=== PATIENT | female | born 1940 | race Caucasian/White ===

== ENCOUNTER 2018-05-29 11:09 | Inpatient (IN) ==
[2018-05-29 08:17] LABS: INR 1.03; PROTIME 14.3 Seconds (11.0-16.0)
[2018-05-29 08:18] LABS: PTT 29.6 Seconds (22.3-41.8)
--- NOTE | 2018-05-29 10:20 | Diag Imaging Result Doc PS360 ---
EXAM: CHEST-2 VIEWS INDICATION: INSPIRATION/EXPIRATION POST BIOPSY TECHNIQUE: 2 views COMPARISON: 12/08/2013 FINDINGS: No discrete pneumothorax is identified status post CT-guided right lung biopsy. There is mild blunting of the right costophrenic angle suggesting trace pleural fluid and/or mild atelectasis. The lungs appear grossly clear, otherwise. The cardiomediastinal silhouette and central vasculature are grossly unremarkable. IMPRESSION: Suggestion of trace pleural fluid and/or atelectasis at the right lung base but no evidence of pneumothorax by plain radiograph status post CT-guided right lung biopsy. Electronically signed by Imer Ortiz 05/29/2018 10:17 AM
[2018-05-29] MEDS ORDERED: NS 500 ML IV ONE (11:13)
[2018-05-29] MEDS ORDERED: ZOFRAN IV ONE (11:13)
[2018-05-29] MEDS ORDERED: MORPHINE IV ONE (11:13)
[2018-05-29] MEDS ORDERED: VITAMIN K IM ONE (11:15)
[2018-05-29] MEDS ORDERED: ZOFRAN ONE (11:15)
[2018-05-29] MEDS ORDERED: MORPHINE ONE (11:16)
[2018-05-29] MEDS ORDERED: CARDIZEM IV ONE ×2 (11:28→11:57)
[2018-05-29 11:43] LABS: BASO# 0.02 X1000 (0.0-0.2); BASO% 0.2 % (0.0-0.8); EOS# 0.04 X1000 (0.0-0.7); EOS% 0.4 % (0.0-10.0); HEMATOCRIT 34.1 % (37.0-47.0); HEMOGLOBIN 10.8 g/dL (12.0-16.0); IMM GRAN# 0.02 X1000 (0.0-0.04); IMM GRAN% 0.2 % (0.0-0.5); LYMPH# 3.21 X1000 (1.2-3.4); LYMPH% 32.2 % (20.5-51.1); MCHC 31.7 g/dL (33-37); MCV 94.7 FL (81-99); MONO# 0.96 X1000 (0.11-0.59); MONO% 9.6 % (1.7-9.3); MPV 11.7 FL (7.4-10.4); NEUT# 5.71 X1000 (1.4-6.5); NEUT% 57.4 % (42.2-75.2); PLT 266 X1000 (130-400); RDW 13.7 % (11.5-14.5); WBC 9.96 X1000 (4.8-10.8)
[2018-05-29 11:47] LABS: INR 1.21; PROTIME 16.2 Seconds (11.0-16.0)
[2018-05-29 11:48] LABS: PTT 22.2 Seconds (22.3-41.8)
[2018-05-29 12:04] LABS: I-STAT CREATININE 1.4 mg/dL (0.6-1.3)
[2018-05-29 12:10] LABS: ALB/GLOB RATIO 1.9; ALBUMIN 3.8 g/dL (3.5-5.0); CALCIUM 8.9 mg/dL (8.8-10.2); CREATININE 1.3 mg/dL (0.5-0.9); POTASSIUM 3.3 mmol/L (3.5-5.1); TOTAL BILIRUBIN 0.48 mg/dL (0.20-1.00); TOTAL PROTEIN 5.8 g/dL (6.3-8.3)
--- NOTE | 2018-05-29 12:11 | Diag Imaging Result Doc PS360 ---
EXAM: CT THORAX W/WO CONTRAST INDICATION: POST BIOPSY TECHNIQUE: This exam was performed using automated exposure control, adjustment of mA or kV according to patient size, and/or use of iterative reconstruction technique. COMPARISON: Prebiopsy CT of the chest without contrast dated 05/29/2018 FINDINGS: There has been development of a moderate-sized hemothorax on the right as a complication of the CT-guided right upper lobe lung biopsy done a few minutes prior to the scan. There is active contrast extravasation into the anteromedial pleural space adjacent to the recently biopsied mass. This can be seen on image 53 of series 7. Although it is underlying the internal mammary artery, extravasation is not clearly emanate from the artery. It may emanate from the mass itself, which abuts the pleura. The hemothorax is causing mild leftward mediastinal shift and right atrial tamponade. There is some groundglass opacity around the recently biopsied mass in the anterior segment of the right upper lobe indicating perilesional parenchymal hemorrhage. There is atelectasis at the right lung base related to the thorax. There is pulmonary emphysema as has been seen on previous studies that is at least moderate in severity. IMPRESSION: Moderate-sized right hemothorax due to the very recent CT-guided biopsy with active extravasation into the pleural space as detailed above. The findings were discussed with the emergency department physician, Dr. Gavin Maxwell at 05/29/2018 11:55 PM and was acknowledged. Electronically signed by Imer Ortiz 05/29/2018 12:09 PM
--- NOTE | 2018-05-29 12:21 | Diag Imaging Result Doc PS360 ---
EXAM: CT GUIDED BIOPSY LUNG INDICATION: R-LUNG MASS TECHNIQUE: COMPARISON: PET scan dated 05/16/2018 FINDINGS: Risks, benefits, and alternatives were discussed with the patient and informed consent was obtained. The patient was placed in a supine position and was prepped and draped in sterile fashion. Local anesthesia was achieved with 1% lidocaine solution. Using CT guidance, an 18-gauge coaxial biopsy needle system was inserted into the mass in the anterior segment of the right upper lobe seen on the previous PET scan using an anterior approach guiding the needle just lateral to the internal mammary artery. Two 1.3 cm core biopsies of the mass were obtained. The patient began experiencing significant hemoptysis and shortness of breath and shortness of breath. The needle was then withdrawn intact. A post biopsy chest radiograph showed no pneumothorax but there was a small pleural fluid collection at the right lung base. Patient continued to experience shortness of breath so a full postbiopsy CT of the chest with and without contrast was performed. It showed a moderate-sized right hemothorax with active contrast extravasation. The patient was transferred to the emergency department and was to be admitted by the hospitalist. IMPRESSION: Technically successful CT-guided biopsy of the right upper lobe lung mass, which was complicated by development of a hemothorax. Please see above discussion. Electronically signed by Imer Ortiz 05/29/2018 12:19 PM
[2018-05-29 12:30] LABS: ALLEN TEST NO; BLOOD TYPE ARTERIAL; METHB 0.5 % (0.0-1.5); O2HB 95.4 % (95.0-99.0); PO2(98.6) 97 mmHg (60-100); SAMPLE BLOOD; SAO2 97.8 % (95.0-100.0); THB 8.8 g/dL (11.5-17.4)
[2018-05-29 12:31] LABS: MODALITY NRB
[2018-05-29 12:33] LABS: PCO2(98.6) 59 mmHg (35-45)
--- NOTE | 2018-05-29 12:37 | PROVIDER DOCUMENTATION ---
This chart was entered by Marlee Manjarrez Scribe, acting as scribe for Gavin Potts MD. HPI-Critical Care - General Chief Complaint: For Procedure Stated Complaint: FOR PROCEDURE Time Seen by Provider: 05/29/18 11:11 Source: patient, other (radiologist) Unable to obtain history due to:: urgency Allergies/Adverse Reactions: Allergies Allergy/AdvReac Type Severity Reaction Status Date / Time hydrocodone Allergy NAUSEA/VOMI Verified 05/29/18 07:20 TING Home Medications: Home Medication List Medication Instructions Recorded Confirmed Last Taken Type Clopidogrel [Plavix] 75 mg PO HS 12/05/13 05/29/18 05/28/18 20:00 History Isosorbide Mononitrate E.r. [Imdur] 60 mg PO QAM 12/05/13 05/29/18 05/28/18 07: 00 History Metformin HCl 1,000 tab PO BID 12/05/13 05/29/18 05/28/18 17:00 History Omeprazole 40 mg PO QAM 12/05/13 05/29/18 05/28/18 17:00 History Triamterene/Hydrochlorothiazid 37.5 mg PO DAILY 12/05/13 05/29/18 05/28/18 07: 00 History [Triamterene-Hctz 37.5-25 mg Cp] Furosemide [Lasix] 40 mg PO QAM 04/20/14 05/29/18 05/28/18 07:00 History Pregabalin [Lyrica] 50 mg PO QHS 04/20/14 05/29/18 05/28/18 21:00 History ROSUVAstatin [Crestor] 20 mg PO DAILY 04/20/14 05/29/18 05/28/18 21:00 History Aspirin 81 mg PO DAILY 10/12/17 05/29/18 05/28/18 20:00 History Cilostazol [Pletal] 50 mg PO BID 10/12/17 05/29/18 05/28/18 18:00 History Atenolol 25 mg PO DAILY 05/29/18 05/29/18 05/28/18 07:00 History Lactobacillus Rhamnosus GG 1 each PO DAILY 05/29/18 05/29/18 05/28/18 07:00 History [Culturelle] Naproxen 500 mg PO DAILY 05/29/18 05/29/18 Unknown History Potassium Chloride 20 meq PO BID 05/29/18 05/29/18 05/28/18 18:00 History Rivaroxaban [Xarelto] 20 mg PO DAILY 05/29/18 05/29/18 05/27/18 History Warfarin [Coumadin] 4 - 8 mg PO DIRECTED PRN PRN 05/29/18 05/29/18 05/22/18 History - History of Present Illness-Critical Care Nature of Presenting Problem: 78 yowf presents to the ed with c/o sob and pain. pt ws having a procedure done when pt had bleed into rt lung. pt presents with a large hemathorax and in moderate distress. pt is on known blood thinners Location of Pain/Injury: reports: chest Quality of Pain: reports: fullness Severity in ED: reports: severe Onset/Duration: reports: just prior to arrival (was brought down from radiology) Timing: reports: still present, getting worse Associated Symptoms: reports: shortness of breath, other (confusion). denies: back/neck pain, cough, fever/chills Loss of Consciousness: no loss of consciousness Improves Condition (Modifying Factors): improves with: nothing Similar Symptoms Previously?: No Recently Seen Here or By Another Healthcare Provider: Yes (was in procedure in radiology) Review of Systems - Adult - REVIEW OF SYSTEMS - ADULT ROS:: unobtainable per condition Constitutional: reports: other (pt is moderate distress and confused). denies: chills, fever Eyes: reports: no symptoms reported Ears, Nose, Mouth & Throat: reports: see HPI, other (no teeth) Cardiovascular: reports: see HPI, other (pt is in afib with rvr) Respiratory: reports: no symptoms reported Gastrointestinal: denies: abdominal pain, nausea, vomiting Genitourinary: reports: no symptoms reported Musculoskeletal: denies: back pain, neck pain Integumentary: reports: no symptoms reported Neurological: denies: dizziness/vertigo, headache/migraines, slurred speech Psychiatric: reports: no symptoms reported Endocrine: reports: no symptoms reported Hematologic/Lymphatic: reports: no symptoms reported Allergic/Immunologic: reports: no symptoms reported All Other Systems: Reviewed and Negative Past History - Adult - PAST MEDICAL HISTORY-ADULT Review of Records: reports: Old Records Reviewed, Nursing Assessment Review, Medications Reviewed, Social history reviewed & non-contributory. Major Childhood Illnesses: reports: denies history Cardiovascular: reports: A-Fib, CHF, HTN, hyperlipidemia, CO Respiratory: reports: COPD Gastrointestinal: reports: GERD Obstetrical/Gynecological: reports: denies history Genitourinary: reports: cancer (bladder) Musculoskeletal: reports: denies history Neurological: reports: denies history Psychiatric: reports: denies history Endocrine/Immune: reports: Diabetes - PRIOR SURGERIES/PROCEDURES Surgical/Procedure History: reports: cardiac stent, hysterectomy, other ( cataract removal, rt leg angioplasty, rt breast, bladder, back) - PRIOR HOSPITALIZATIONS Prior Hospitalizations: reports: for other non-related - IMMUNIZATION STATUS Childhood Immunizations: UTD, See Nurse Assessment Flu Vaccine: See Nurse Assessment - FAMILY HISTORY Family History: reviewed, not pertinent - SOCIAL HISTORY Smoking: quit greater than 1 year Substance Use: denies Living Situation: family Physical Exam-General - PHYSICAL EXAM-ADULT Exam Limited by: pt is confused and moderate distress Initial Vital Signs Reviewed: Yes - CONSTITUTIONAL General Appearance: alert, obese, other (condfused) - EYES Eyes: PERRL/EOMI - HEAD, EARS, NOSE, MOUTH & THROAT HENMT: moist mucous membranes, other (no teeth) - NECK Neck: normal inspection - RESPIRATORY Respiratory: respiratory distress (mild), decreased breath sounds, dull on percussion, increased rate (32), other (hemathorax rt side) - CARDIOVASCULAR Cardiovascular: tachycardia, irregularly irregular (124), other (afib with rvr) - CHEST (BREASTS) Chest/Breast: tenderness (and small PW from biopsy, right upper para sternal border) - GASTROINTESTINAL (ABDOMEN) Abdominal Exam: normal bowel sounds, non tender, soft - GENITOURINARY Female Genitalia/Pelvic Exam: deferred Rectal Exam: deferred - LYMPHATIC Lymphatic: no adenopathy - MUSCULOSKELETAL Back Exam: other (not done pt was lying on back in room) Extremity: pedal edema - SKIN Integumentary: warm/dry, pallor - NEUROLOGIC Neurologic: other (pt is confused) - PSYCHIATRIC Psych/Mental Status: anxious Progress - PLAN OF CARE/RESULTS Progress/Plan/Lab Results: Vital Signs - 8 hr 05/29/18 11:11 05/29/18 11:27 05/29/18 11:29 Pulse Rate 150 H 151 H 135 H Respiratory Rate 32 H 30 H 32 H Blood Pressure 99/61 100/41 O2 Sat by Pulse Oximetry 98 99 98 05/29/18 11:31 05/29/18 11:32 05/29/18 11:40 Pulse Rate 135 H 140 H 149 H Respiratory Rate 26 H 30 H 29 H Blood Pressure 106/92 O2 Sat by Pulse Oximetry 97 97 97 05/29/18 11:48 05/29/18 11:50 05/29/18 11:52 Pulse Rate 127 H 97 H 108 H Respiratory Rate 30 H 30 H 30 H Blood Pressure 83/50 96/47 O2 Sat by Pulse Oximetry 82 L 84 L 80 L 05/29/18 11:56 05/29/18 12:00 05/29/18 12:01 Pulse Rate 139 H 100 H Respiratory Rate 24 24 Blood Pressure 110/54 O2 Sat by Pulse Oximetry 87 L 96 96 05/29/18 12:02 05/29/18 12:06 Pulse Rate 106 H 109 H Respiratory Rate 24 23 Blood Pressure 86/38 78/48 O2 Sat by Pulse Oximetry 96 96 Laboratory Results - last 24 hr 05/29/18 05/29/18 05/29/18 11:20 11:20 11:20 WBC 9.96 RBC 3.60 L Hgb 10.8 L Hct 34.1 L MCV 94.7 MCH 30.0 MCHC 31.7 L RDW Std Deviation 13.7 Plt Count 266 MPV 11.7 H Immature Gran % (Auto) 0.2 Neut % (Auto) 57.4 Lymph % (Auto) 32.2 [place] % (Auto) 9.6 H Eos % (Auto) 0.4 Baso % (Auto) 0.2 Immature Gran # (Auto) 0.02 Neut # (Auto) 5.71 Lymph # (Auto) 3.21 [place] # (Auto) 0.96 H Eos # (Auto) 0.04 Baso # (Auto) 0.02 PT 16.2 H INR 1.21 PTT (Actin FS) 22.2 L Sodium 136 Potassium 3.3 L Chloride 94 L Carbon Dioxide 26 Anion Gap 16 BUN 24 H Creatinine 1.3 H Estimated GFR/1.73 m2 40 BUN/Creatinine Ratio 18 Glucose 352 H Calculated Osmolality 290 Calcium 8.9 Total Bilirubin 0.48 AST 11 ALT 9 L Alkaline Phosphatase 32 Troponin T Total Protein 5.8 L Albumin 3.8 Globulin 2.0 Albumin/Globulin Ratio 1.9 Blood Type 05/29/18 05/29/18 11:20 11:20 WBC RBC Hgb Hct MCV MCH MCHC RDW Std Deviation Plt Count MPV Immature Gran % (Auto) Neut % (Auto) Lymph % (Auto) [place] % (Auto) Eos % (Auto) Baso % (Auto) Immature Gran # (Auto) Neut # (Auto) Lymph # (Auto) [place] # (Auto) Eos # (Auto) Baso # (Auto) PT INR PTT (Actin FS) Sodium Potassium Chloride Carbon Dioxide Anion Gap BUN Creatinine Estimated GFR/1.73 m2 BUN/Creatinine Ratio Glucose Calculated Osmolality Calcium Total Bilirubin AST ALT Alkaline Phosphatase Troponin T < 0.010 Total Protein Albumin Globulin Albumin/Globulin Ratio Blood Type A POSITIVE Orders Category Date Time Status Misc. NRSG Communication Order DIRECTED Care 05/29/18 12:30 Ordered Nursing- MD Consult Request ROUTINE Care 05/29/18 12:09 Active Transfuse .Give-Transfuse Care 05/29/18 12:00 Active Transfuse .Give-Transfuse Care 05/29/18 12:01 Active Physician/Provider Consults Routine Cons 05/29/18 12:09 Ordered NPO Diet 05/29/18 11:12 Active CHEST-PORTABLE [RAD] Stat Exams 05/29/18 11:13 Taken CHEST-PORTABLE [RAD] Stat Exams 05/29/18 12:05 Taken ABG [RESP] Routine Lab 05/29/18 12:06 Ordered CBC WITH ELECTRONIC DIFF [HEME] Stat Lab 05/29/18 11:20 Completed COMPREHENSIVE METABOLIC PANEL [CHEM] Stat Lab 05/29/18 11:20 Completed FRESH FROZEN PLASMA [BBK] Stat Lab 05/29/18 11:20 Results LRPC (RED CELLS) [BBK] Stat Lab 05/29/18 12:00 Uncollected PHERESIS PLATELETS [BBK] Stat Lab 05/29/18 12:06 Uncollected PRO B-NATRIURETIC PEPTIDE Stat Lab 05/29/18 11:20 Received PROTIME WITH INR [COAG] Stat Lab 05/29/18 11:20 Completed PTT [COAG] Stat Lab 05/29/18 11:20 Completed TROPONIN T Stat Lab 05/29/18 11:20 Completed TYPE & SCREEN [BBK] Stat Lab 05/29/18 11:20 Results URINALYSIS W/POSS RFLX CULT [URINALYSIS] Stat Lab 05/29/18 11:13 Uncollected 0.9% Sodium Chloride Inj [Ns] 500 ml Med 05/29/18 11:13 Discontinued IV 999 mls/hr Diltiazem [Cardizem] Med 05/29/18 11:28 Discontinued 10 mg IV NOW ONE Diltiazem [Cardizem] Med 05/29/18 11:57 Discontinued 25 mg IV NOW ONE Morphine Med 05/29/18 11:16 Discontinued 4 mg .ROUTE .STK-MED ONE Morphine Med 05/29/18 11:13 Discontinued 4 mg IV NOW ONE Ondansetron [Zofran] Med 05/29/18 11:15 Discontinued 4 mg .ROUTE .STK-MED ONE Ondansetron [Zofran] Med 05/29/18 11:13 Discontinued 4 mg IV NOW ONE Phytonadione [Vitamin K] Med 05/29/18 11:15 Discontinued 0.5 mg IM NOW ONE Oxygen Device Stat Oth 05/29/18 11:14 Completed EKG [EKG] Stat Ther 05/29/18 11:12 Ordered Transfer/Admit Order [TRANSFER] Routine Transfer 05/29/18 12:09 Ordered Result Diagrams: 05/29/18 11:20 05/29/18 11:20 - REASSESSMENT Reassessment #1 Time Reassessed: 11:28 (dr potts at bedside) Status: unchanged Reassessment Comment: 99/60 HR 151 afib with rvr Reassessment #2 Time Reassessed: 11:45 (spoke with dr potts) Status: unchanged Reassessment Comment: dr annabel khalil is at bedside with pt Reassessment #3 Time Reassessed: 12:00 (chest tube in place and pt had 1200 of blood output from chest tbe. dr potts is aware and at bedside) Status: improving Reassessment Comment: blood being ordered for 2 units, plus FFP, plus platelets Reassessment #4 Time Reassessed: 12:35 Status: improving (HR down after two doses of cardizem. Given Morphine/zofran for pain. Blood products warmed and Diane Hugger used for hypothermia) - XRAY 1 XRAY: Bilateral XRAY Study: Chest Impression: Abnormal, See EMR Report XRAY Interpretation: large right pleural effusion/hemothorax - CONSULTS/PCP/HOSPITALIST Notification #1 *Consult/PCP/Hospitalist*: dr jin sx Time Discussed: 11:26 (called x3 and returned call and spoke with dr jin about the pt and possible of chest tube) Reason/Comments: sx will come to ed and place chest tube dr jin Consult Disposition: Will see in ED #2 Consult: dr to Time Discussed: 11:00 (pt was having procedure done) Reason/Comments: called to advise pt was coming to ed with possible hemathorax #3 Consult: hospitalist dr hoyt Time Discussed: 12:06 Consult Disposition: Admit Departure - Departure Date of Disposition Decision: 05/29/18 Time of Disposition Decision: 12:34 DIAGNOSIS: Atrial fibrillation with rapid ventricular response, Post-procedural respiratory complication, Hemothorax on right, Type 2 diabetes mellitus with hyperglycemia, with long-term current use of insulin Hypothermia Qualifiers: Encounter type: initial encounter Qualified Code(s): T68.XXXA - Hypothermia, initial encounter Disposition: ADMITTED INPATIENT 09 Certified Medical Emergency: Emergent Condition: Fair Referrals and Follow-Ups: None,PCP [Primary Care Provider] - - Critical Care Note This patient required my direct & personal management of CC.: Yes Total Time (mins): 45 Critical Care Statement: This patient required my direct personal management to treat or rule out processes, the absence of which, could potentiallly result in sudden, clinically significant life or limb threatening deterioration. Attestation - Physician/ CHANTELLE Attestation Patient care was provided by Advanced Practice Provider:: No The physician spent face to face time with patient:: Yes Advanced Practice Provider documentation review:: Supervising physician onsite and consulted in the evaluation and care of this patient. The physician did have a face to face encounter with the patient. This chart was documented by the indicated scribe, (Marlee Manjarrez Scribe) and accurately reflects the services I performed and decisions made by me, Gavin Potts MD, as attested by the provider's signature.
[2018-05-29] MEDS ORDERED: CARDIZEM 100 MG in NS 80 ML IV SCH (13:30)
[2018-05-29 14:03] LABS: URINE SOURCE CLEAN CATCH
[2018-05-29 14:17] LABS: BILIRUBIN URINE NEGATIVE (NEGATIVE); BLOOD URINE NEGATIVE (NEGATIVE); COLOR YELLOW; GLUCOSE URINE NEGATIVE (NEGATIVE); KETONE URINE NEGATIVE (NEGATIVE); LEUKOCYTES URINE NEGATIVE (NEGATIVE); NITRITE URINE NEGATIVE (NEGATIVE); PH URINE 6.5; PROTEIN URINE TRACE mg/dL (NEGATIVE); SP GRAVITY URINE 1.008; TURBIDITY URINE CLEAR (CLEAR); UROBILINOGEN URINE NORMAL (NORMAL)
[2018-05-29 14:18] LABS: UR EPITHELIAL CELLS <10 /HPF (<10); URINE BACTERIA NEGATIVE /HPF; URINE RBC <10 /HPF (<10); URINE WBC <10 /HPF (<10)
[2018-05-29 14:19] LABS: ALLEN TEST NO; BLOOD TYPE ARTERIAL; HCO3-(ACT) 24.9 mmoll (20.0-26.0); METHB 0.4 % (0.0-1.5); O2(CT) 16.3 mL/dL (15.0-23.0); O2HB 97.8 % (95.0-99.0); PO2(98.6) 203 mmHg (60-100); SAMPLE BLOOD; SAO2 100.1 % (95.0-100.0); THB 11.5 g/dL (11.5-17.4); pH(98.6) 7.29 (7.35-7.45)
[2018-05-29 14:20] LABS: MODALITY NRB
[2018-05-29 14:23] LABS: PCO2(98.6) 57 mmHg (35-45)
--- NOTE | 2018-05-29 15:01 | Diag Imaging Result Doc PS360 ---
EXAM: CHEST-PORTABLE INDICATION: tube placement TECHNIQUE: One view COMPARISON: 05/29/2018 FINDINGS: There is a newly placed right thoracostomy tube. The tip projects over the right upper lung zone. There is no evidence of pneumothorax. There has been decrease in the amount of pleural fluid during the interval since placement of chest tube. There is still at least a small amount of pleural fluid at the right lung base. The left lung is unremarkable. Cardiac silhouette is stable. IMPRESSION: Interval placement of right chest tube with resulting decrease in the amount of pleural fluid and no evidence of pneumothorax. Electronically signed by Imer Ortiz 05/29/2018 2:59 PM
--- NOTE | 2018-05-29 15:03 | Diag Imaging Result Doc PS360 ---
EXAM: CHEST-PORTABLE INDICATION: right hemothorax TECHNIQUE: One view COMPARISON: 05/29/2018 FINDINGS: During the short interval, there has been an increase in the amount of pleural fluid. This represents a known biopsy-related hemothorax as was seen on a CT performed during the interval. There is increased hazy opacity in the right mid and lower lung zone that likely represents a combination of atelectasis and parenchymal hemorrhage. The left lung is stable. Cardiac silhouette is stable. IMPRESSION: Worsened hemothorax on the right as compared to the recent prior radiograph. Electronically signed by Imer Ortiz 05/29/2018 3:01 PM
[2018-05-29] MEDS: NEO-SYNEPHRINE 50 MG in NS 250 ML IV SCH ×2 (15:18→21:49)
--- NOTE | 2018-05-29 15:54 | HISTORY AND PHYSICAL ---
CHIEF COMPLAINT: Postprocedural hemothorax and respiratory failure. HISTORY OF PRESENT ILLNESS: Ms. Talley is a pleasant 78-year-old female with a history of throat cancer, coronary artery disease, COPD, and atrial fibrillation who presents from our CT Department with respiratory distress after a lung biopsy for nodule evaluation. Postprocedure CAT scan showed a right-sided hemothorax with very mild left shift of the mediastinum. She has been maintaining O2 saturations adequately, however, her initial ABG showed respiratory acidosis with lactic acidosis. She is anemic with a hemoglobin and hematocrit of 10.8 and 34.1 respectively. Her chemistry does show some mild renal insufficiency, hyperglycemia, and mild hypokalemia. Thus far she has had about 1500 to 2000 mL of blood out of her chest tube. She is hypotensive and tachycardic with rhythm being atrial fibrillation with a rapid response. Dr. Jean Baptiste with surgery has already placed the chest tube and will be following along. In the mean time we will admit her to the ICU for further treatment and evaluation. PAST MEDICAL HISTORY: 1. Congestive heart failure. EF unknown. 2. Coronary artery disease. 3. Atrial fibrillation on Coumadin therapy which has been stopped for this procedure. 4. Diabetes mellitus type 2, not requiring insulin. 5. Nonobstructive carotid artery disease. 6. COPD. 7. Hyperlipidemia. 8. Hypertension. 9. 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 SURGICAL HISTORY: Multiple biopsies, hysterectomy, cataract removal, right leg angioplasty, right breast surgery, bladder and back surgery. SOCIAL HISTORY: She started smoking again about a week and a half ago. She had been quit for 2 or 3 years. She has over a 60 pack year history. No alcohol or drug use. She is not . Her cousin is at the bedside who has legal power of compliance attorney. She is not and has no children. FAMILY HISTORY: Noncontributory. REVIEW OF SYSTEMS: Difficult to obtain at this time but a limited 10 point review of systems was obtained and found to be negative with the exception of the HPI. HOME MEDICATIONS: Currently being compiled. ALLERGIES: Hydrocodone. PHYSICAL EXAMINATION: VITAL SIGNS: Blood pressure is 76/46, heart rate 107, respiratory rate 30-40 resp/min, and O2 sat 100% on 2 L nasal cannula. Temperature was not recorded. GENERAL: Chronically ill and elderly appearing 78-year-old female lying in a hospital bed, lethargic. NEUROLOGIC: She does follows commands without focal deficits. She is oriented and a bit groggy. HEENT: The head is atraumatic and normocephalic. Pupils are equal, round, and reactive to light. Oral mucosa is dry. NECK: Trachea is midline. There is no JVD. CHEST: Diminished especially over the right lung base, otherwise clear to auscultation bilaterally. CV: Irregular rate and rhythm. S1, S2 is noted. No murmurs. GI: Soft, nondistended, and nontender. Bowel sounds are active. EXTREMITIES: Trace edema. Pulses are diminished at 1+. DIAGNOSTIC DATA: Initial CT of the chest shows a moderate-sized right hemothorax due to very recent CT-guided biopsy with active extravasation into the pleural space. Post chest tube x-ray pending. WBC is 9.96, hemoglobin 10.8, hematocrit 34.1, and platelet count 266. INR 1.21. ABG reveals a pH of 7.2, CO2 59, O2 97, bicarb 21, base excess -5, lactic acid 6.8, sodium 136, potassium 3.3, chloride 94, CO2 26, anion gap 16, BUN 24, creatinine 1.3, glucose 352, bilirubin 0.48, AST 11, ALT 9, ALK PHOS 32, troponin negative, proBNP 2188, and protein 5.8. ASSESSMENT AND PLAN: 1. Acute iatrogenic right-sided hemothorax: Status post chest tube. Surgery is following. We will also have Cardiology and Pulmonology following. She is currently receiving multiple units of blood products. We will need to be very cautious with her history of heart failure and CAD. Her EF is unknown and we are consulting Cardiology and they should be able [facility]. We will monitor her output of the chest tube and her hemodynamics very closely. She is a full code. We will check daily chest x-rays, ABGs, and follow her counts daily. 2. Hypercapnic respiratory failure: We consulted Pulmonary. We will continue breathing treatments, aggressive pulmonary toilet, and oxygen as necessary. 3. Acute blood loss anemia: Continue transfusions. Trend her hemoglobin and hematocrit. 4. Atrial fibrillation with rapid ventricular response: She has been given IV pushes of Cardizem but a dose or two has not been given due to her hypotension. We will add Antolin-Synephrine to improve her MAP and hopefully not affect the HR. 5. Acute kidney injury, mild: She is getting fluids. We will follow and do more comprehensive studies if needed. 6. Nicotine dependence: We have advised the patient to quit smoking. We will continue daily cessation education. 7. Deep vein thrombosis prophylaxis with sequential compression devices. Further recommendations to follow. CRITICAL CARE TIME: Greater than 1 hour. Patient seen and examined by me face to face, all the laboratory, vitals signs, and images were reviewed, patient has been admitted to treat a new hemothorax, this patient has a lung nodule that has to be evaluated, but she started bleeding during the procedure, surgery department already placed a chest tube and is in a good position, she takes anticoagulation but those has been stop a few days ago for the procedure, she also has A Fib with RVR but has been treated already, cardiology department will be on board as well, she is complaining about pain, she has been placed in the unit, I agree with the rest of the [employer]EDER's a assessment and plan, Kermit moreira MD. Dictated by CHLOE Hess for Kermit West MD cc: CHLOE Hess MD MTDD
[2018-05-29] MEDS: ZOFRAN IV PRN ×2 (16:12→18:00)
[2018-05-29] MEDS: POTASSIUM CHLORIDE 20 MEQ/SWI 20 MEQ/100 ML IVPB IV SCH ×2 (18:03→21:48)
[2018-05-29] MEDS ORDERED: LANOXIN IV ONE (18:11)
[2018-05-29] MEDS: MORPHINE IV PRN (23:17)
--- NOTE | 2018-05-30 03:23 | OPERATIVE NOTE ---
PROCEDURE DATE: 05/29/2018 PREOPERATIVE DIAGNOSIS: Right hemothorax. POSTOPERATIVE DIAGNOSIS: Right hemothorax. PROCEDURE PERFORMED: 32-Armenian right chest tube placement. ESTIMATED BLOOD LOSS: From the procedure itself was minimal, but there was 1200 mL of blood initially from the chest tube with some loss in the bed. ANESTHETIC: Local. INDICATIONS FOR PROCEDURE: A 78-year-old female status post right percutaneous lung biopsy from an anterior approach. She developed hemothorax postoperatively and is hemodynamically unstable from this. OPERATIVE FINDINGS: A large amount of dark blood from the right chest, initial 1200 mL out but then it slowed quickly, there was no air leak. DESCRIPTION OF PROCEDURE: We attempted to discuss the risks and benefits with the patient although her mental status is limited giving her hemodynamic instability. She is profoundly tachycardic, hypotensive and hypoxic. Emergent tube is indicated. Her right chest was prepped with Betadine and draped. After a time-out local anesthetic was infiltrated down to the level of the rib. We made this incision at the inframammary fold and it carried down through the subcutaneous tissue identifying the rib, and entered the right hemithorax in a open controlled fashion dilating the tract. There was a large meléndez of bloody fluid. We placed a 32-Armenian chest tube straight tube posterior and apically. We connected this to a Pleur-evac device and a large amount of bloody drainage ensued. It was secured with 2-0 silk sutures. Sterile dressing was applied. She tolerated this well and prompt improvement in her hemodynamics and her oxygen saturations. STAT labs are pending at this juncture, we are transfusing her actively and transferred to the ICU. Post placement x-ray showed good position with improvement in the effusion. She had no air leak noted. No family was available for immediate discussion but we will talk with them going forward. cc: Padma Jaen Baptiste MD [facility]
--- NOTE | 2018-05-30 03:25 | GENERAL SURGERY CONSULTATION ---
DATE: 05/29/2018 HISTORY OF PRESENT ILLNESS: This is a 78-year-old female who has metastatic head and neck cancer. She was undergoing a lung biopsy today and sustained a postoperative hemothorax. She became quite symptomatic, diaphoretic, hypotensive, and tachycardic related to this. She was transferred to the emergency department for ongoing resuscitation. CT scan done after the procedure showed a small blush anteriorly. She was also hypoxic, requiring high amounts of O2. I have been consulted for management of this hemothorax. Medical history was not noted at the initial evaluation, given the patient's emergent setting but in retrospect, we have been able to gather congestive heart failure, coronary artery disease. She has atrial fibrillation which was known, diabetes, COPD, metastatic head and neck cancer with bladder and possible lung metastasis, hypertension, hyperlipidemia, chronic anticoagulation with Coumadin and apparently Plavix for coronary artery disease. SURGICAL HISTORY: Numerous biopsies percutaneously, hysterectomy, she had peripheral vascular angioplasties, bladder surgery, surgery on her right breast, unclear etiology. SOCIAL HISTORY: She does have a strong smoking history. No alcohol. No drugs. She has a family but none are here with her at this moment. FAMILY HISTORY: Reviewed and noncontributory. MEDICATIONS: Somewhat limited but we do know she takes Coumadin and apparently Plavix. REVIEW OF SYSTEMS: 10 point other [place] negative other than HPI PHYSICAL EXAMINATION: Vital Signs: On examination, she was hypotensive with systolic blood pressure in the 80s. No fevers. Heart rate has been 140s and 150s with atrial fibrillation. General: She is somnolent, responds only to painful stimuli. HEENT: There was no scleral icterus. I do not appreciate any cervical masses. She does seem to have a transverse scar. Cardiovascular: Irregular rate and rhythm, atrial fibrillation with a rapid response. Pulmonary: She has shallow respirations. There is a dressing anteriorly. There is no obvious bleeding. I do not see any subcutaneous air. Abdomen: Soft, nontender. Integument: Cool and diaphoretic, with no jaundice. Neurologic: She is difficult to arouse. She is not oriented. Psychiatric: As noted in her neurologic examination. Lymphatic: I do not feel any cervical adenopathy. Peripheral Vascular: Extremities are edematous. They are cool. LABORATORY DATA: White count is 9, hematocrit is 34. INR is 1.20 but her PTT and PT are somewhat elevated. Creatinine is 1.3, potassium is 3.3, glucose 352. Troponins are negative. Lactate was 3.0. I reviewed her CT scan, postprocedural films, as well as her chest x-ray. ASSESSMENT AND PLAN: This is a 78-year-old female with iatrogenic pneumothorax after a percutaneous lung biopsy. She does have a small blush. It is unclear if this is coming from the chest wall or if it is coming from the lung and even the lesion. She does not have a pneumothorax but given her worsening hemodynamic status, I have recommended emergent chest tube placement. Unfortunately, her family is not immediately available and I worry about this patient. She is profoundly hemodynamically unstable. We will place this emergently at the bedside. I have discussed this matter with Dr. Potts in the emergency room as well. She has not been transfused yet but I have recommended to give transfusion of 2 units of packed cells with platelets and plasma. We are not completely sure of her anticoagulation status as part of the potential massive transfusion protocol. The hospitalists have been consulted as well. She does have multiple medical issues. Where she to continue to have high output, she may ultimately need median sternotomy and possible thoracotomy to control this bleeding which would be not ideal in this chronically ill female. Operative note is to follow. cc: Padam Jean Baptiste MD [facility]ENTERJabier
[2018-05-30 05:22] LABS: ALLEN TEST YES; BE -0.3 mmoll (-3.0-3.0); BLOOD TYPE ARTERIAL; HCO3-(ACT) 24.7 mmoll (20.0-26.0); METHB 0.8 % (0.0-1.5); O2(CT) 14.7 mL/dL (15.0-23.0); O2HB 95.4 % (95.0-99.0); PCO2(98.6) 37 mmHg (35-45); PO2(98.6) 78 mmHg (60-100); SAMPLE BLOOD; SAO2 97.9 % (95.0-100.0); THB 10.9 g/dL (11.5-17.4); pH(98.6) 7.42 (7.35-7.45)
[2018-05-30 05:23] LABS: MODALITY CANNULA
[2018-05-30 05:37] LABS: INR 1.11; PROTIME 15.2 Seconds (11.0-16.0)
[2018-05-30 05:39] LABS: HEMATOCRIT 32.7 % (37.0-47.0); HEMOGLOBIN 10.7 g/dL (12.0-16.0); IMM GRAN# 0.02 X1000 (0.0-0.04); IMM GRAN% 0.1 % (0.0-0.5); LYMPH# 0.63 X1000 (1.2-3.4); LYMPH% 4.5 % (20.5-51.1); MCH 29.2 PG (27-31); MCHC 32.7 g/dL (33-37); MCV 89.3 FL (81-99); MONO# 1.18 X1000 (0.11-0.59); MONO% 8.4 % (1.7-9.3); MPV 11.9 FL (7.4-10.4); PLT 213 X1000 (130-400); RBC 3.66 XMIL (4.2-5.4); RDW 16.1 % (11.5-14.5); WBC 14.13 X1000 (4.8-10.8)
[2018-05-30 06:20] LABS: HEMOGLOBIN A1C 5.7 % (4.8-6.0)
[2018-05-30] MEDS: MORPHINE IV PRN ×3 (06:41→13:50)
[2018-05-30 06:51] LABS: BANDS 4 % (0-1); LYMPHS 16 % (21-51); MONO 14 % (1-9); SEGS 64 % (42-75)
[2018-05-30] MEDS: CARDIZEM 125 MG in NS 100 ML IV SCH ×2 (07:14→23:10)
--- NOTE | 2018-05-30 07:45 | Diag Imaging Result Doc PS360 ---
EXAM: CHEST-PORTABLE INDICATION: hemothorax TECHNIQUE: One view COMPARISON: 05/29/2018 FINDINGS: Right chest tube is in stable position. There is still at least a small amount of pleural fluid at the right lung base that is approximately stable as compared to the previous study. Adjacent atelectasis is stable. No new consolidation is appreciated. Cardiac silhouette is stable. IMPRESSION: Essentially stable chest. Electronically signed by Imer Ortiz 05/30/2018 7:43 AM
[2018-05-30] MEDS: CULTURELLE PO SCH (08:45)
[2018-05-30] MEDS: PRILOSEC PO SCH ×2 (08:50→13:54)
--- NOTE | 2018-05-30 08:56 | PROGRESS NOTE ---
DATE: 05/30/2018 SUBJECTIVE: This patient was admitted due to right hemothorax and she is status post right chest tube placement. X-ray today show essentially stable chest. The right chest tube is seen in stable position. There is still at least a small amount of pleural fluid in the right lung base that is stable compared with the previous study, atelectasis. No new consolidation. OBJECTIVE: Vital Signs: Temperature 97.6. Pulse 116, respiratory rate 21. Blood pressure 128/54, oxygen saturation 98% on 3 L of nasal cannula. ASSESSMENT AND PLAN: 1. Acute iatrogenic right-sided hemothorax status post right chest tube placement. Surgery following this patient closely. She seems to be more stable. She is still getting diltiazem drip and pressors. Cardiology Department following this patient closely. Pulmonary Department also on board. 2. Hypercapnic respiratory failure. Continue with the same management. She is getting better. Pulmonary on board. 3. Acute blood loss anemia. Hemoglobin and hematocrit today stable. We will continue to monitor this closely. 4. Atrial fibrillation with rapid ventricular response. Continue with same management. Cardiology Department has been consulted. She is on Cardizem drip and she has been placed also on pressors. 5. Acute kidney injury which is mild. Her creatinine was 1.3 and her previous creatinine in 2016 was 1.2, probably this is her baseline. Pending CMP at this moment. 6. Nicotine dependence. This patient has been advised to quit smoking completely. We will continue with daily cessation education. 7. Deep vein thrombosis prophylaxis with sequential compression devices. cc: Kermit West MD MTDD
[2018-05-30] MEDS: ZOFRAN IV PRN ×2 (09:43→13:51)
[2018-05-30] MEDS: LEVAQUIN 500 MG/D5W 500 MG/100 ML IVPB IV SCH (10:51)
[2018-05-30] MEDS ORDERED: MORPHINE IV ONE (11:54)
[2018-05-30] MEDS: ROCEPHIN 1 GM in NS 50 ML IV SCH (11:56)
[2018-05-30] MEDS: LYRICA PO SCH (20:06)
[2018-05-31] MEDS: MORPHINE IV PRN ×6 (00:27→21:58)
--- NOTE | 2018-05-31 02:52 | GENERAL SURGERY PROGRESS NOTE ---
DATE: 05/30/2018 SUBJECTIVE: Much better this morning. She is more alert. She denies significant chest pain. She does have some discomfort at her right lateral chest tube site. She is off vasopressors.Objective: Vital Signs: Temperature is 97.8 degrees, pulse 79, blood pressure 123/55. General: She is alert and conversant. Chest: Her chest tube is in place, it is -20 suction. There has been a total of about 1700 out, but only 400 since it was placed initially. No air leak, it is to -20 suction LABORATORY DATA: White count is 14, hematocrit is 32. INR is 1.11. ASSESSMENT/PLAN: I have reviewed her x-ray. No pneumothorax with only trace fluid noted on her x- ray. We will continue to monitor her closely, I think she is improving significantly. We will plan to water seal her tube tomorrow and remove it the following day. cc: Padma Jean Baptiste MD
[2018-05-31 04:33] LABS: INR 1.23; PROTIME 16.5 Seconds (11.0-16.0)
[2018-05-31 04:35] LABS: EOS# 0.01 X1000 (0.0-0.7); EOS% 0.1 % (0.0-10.0); HEMATOCRIT 26.3 % (37.0-47.0); HEMOGLOBIN 8.5 g/dL (12.0-16.0); IMM GRAN# 0.02 X1000 (0.0-0.04); IMM GRAN% 0.2 % (0.0-0.5); LYMPH# 0.67 X1000 (1.2-3.4); MCH 29.3 PG (27-31); MCHC 32.3 g/dL (33-37); MCV 90.7 FL (81-99); MONO# 1.09 X1000 (0.11-0.59); MONO% 11.5 % (1.7-9.3); MPV 11.3 FL (7.4-10.4); NEUT# 7.72 X1000 (1.4-6.5); NEUT% 81.2 % (42.2-75.2); PLT 143 X1000 (130-400); RDW 15.2 % (11.5-14.5); WBC 9.51 X1000 (4.8-10.8)
[2018-05-31 04:50] LABS: ALB/GLOB RATIO 1.6; ALBUMIN 3.4 g/dL (3.5-5.0); CALCIUM 8.6 mg/dL (8.8-10.2); CREATININE 1.3 mg/dL (0.5-0.9); POTASSIUM 4.3 mmol/L (3.5-5.1); TOTAL BILIRUBIN 0.35 mg/dL (0.20-1.00); TOTAL PROTEIN 5.5 g/dL (6.3-8.3)
--- NOTE | 2018-05-31 05:20 | CONSULTATION ---
DATE OF CONSULTATION: 05/30/2018 REQUESTING PROVIDER: CHLOE Gibson. REASON FOR CONSULTATION: Respiratory failure, hemothorax. HISTORY OF PRESENT ILLNESS: This is a 78-year-old female with a medical history of COPD, tongue and neck cancer, congestive heart failure, coronary artery disease , arterial fibrillation, diabetes mellitus type 2, nonobstructive carotid artery disease, hyperlipidemia and hypertension. She presents from our CT department with respiratory distress, shock and tachycardia after a lung biopsy for nodule evaluation. CXR showed a right-sided hemothorax with very mild left shift of the mediastinum. Lab revealed respiratory acidosis with lactate acidosis. She underwent right chest tube placement. And after the procedure, she was transferred to the ICU for further management. At the time of my exam, patient is resting in bed with mild to moderate acute distress. She reports she has been nausea although she already received Zofran and morphine. Patient' s family at bedside. The patient also reports chest pain with deep breaths which is related the chest tube in her right side chest. She reports no vomiting, diarrhea, constipation, fever, chill or palpitation. PAST MEDICAL HISTORY: 1. COPD 2. 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 3. Congestive heart failure. 4. Coronary artery disease. 5. Atrial fibrillation on Coumadin therapy which has been held for lung biopsy. 6. Diabetes mellitus type 2. 7. Nonobstructive carotid artery disease. 8. Hyperlipidemia. 9. Hypertension. SURGICAL HISTORY: Multiple biopsies, hysterectomy, cataract removal, right leg angioplastic, right breast surgery, bladder and back surgery. SOCIAL HISTORY: She has a 62 pack year history of tobacco use and quit in 2016 after she was diagnosed with tongue and neck cancer. She has no history of alcohol or illicit drug use. She is not and has no children. Her cousin has legal power of real estate associate attorney and is sitting at bedside with her cousin's . REVIEW OF SYSTEMS: A 10 point review of systems was conducted and the pertinent is listed within the HPI, otherwise noncontributory. ALLERGIES: Hydrocodone. PHYSICAL EXAMINATION: Vital Signs: Temperature 97.6 degrees, blood pressure 117/64, pulse 112, respiratory rate 23, oxygen saturation 96% on nasal cannula at 2 L. General: The patient appears chronically ill and elderly. Currently, she is holding a basin in her hand and her face looks pale. There is a chest tube at the right side of the bed with sanguineous drainage dripping. HEENT: Trachea midline. Atraumatic. Respiratory: Diminished breathing sounds especially over the right lung base, otherwise clear to auscultation. Cardiovascular: Regular rate and rhythm , sinus tachycardia. Gastrointestinal: Soft, obese. Normoactive bowel sounds in all 4 quadrants. Extremities: No pedal edema. No cyanosis. No clubbing. Neurologic: Alert, oriented x3 with general weakness noted. LAB DATA: White blood cell 14.13, hemoglobin 10.7, hematocrit 32.7, platelet 214,000. ABG, pH 7.42, pCO2 37, PO2 78, HC03 24.7, base excess -0.3, and oxyhemoglobin 95.4. IMAGING: Chest x-ray revealed stable right lung based mild pleural effusion and adjacent atelectasis. ASSESSMENT: This is a 78-year-old female with a medical history of COPD, tongue and neck cancer with metastasis to the bladder and possible lung, congestive heart failure, coronary artery disease, atrial fibrillation, diabetes, nonobstructive carotid artery disease, hyperlipidemia and hypertension. She has been admitted to the ICU with postprocedural right-sided hemothorax status post chest tube placement, hypercapnic respiratory failure, acute blood loss anemia, atrial fibrillation with rapid ventricular response, acute kidney injury. 1. Right-sided hemothorax/pneumothorax, iatrogenic due to CT biopsy. 2. Acute hypercapnic respiratory failure. PLAN: 1. Surgery following this patient closely. 2. Continue supplemental oxygen. 3. Continue antibiotics therapy. 4. Chest x-ray and ABG if indicated. 5. Continue GI and DVT prophylaxis. Thank you for the courtesy of this consult. Dictated by CHLOE Vick for Leeanne Singh MD cc: CHLOE Vick MD [facility]
[2018-05-31] MEDS: PRILOSEC PO SCH (06:24)
--- NOTE | 2018-05-31 06:35 | Diag Imaging Result Doc PS360 ---
CHEST-PORTABLE - 05/31/2018 INDICATION: hemothorax COMPARISON: 05/30/2018 FINDINGS: Stable right chest tube in good position. Stable small right basilar pleural effusion. Stable significant cardiomegaly. No pneumothorax. No focal infiltrates. IMPRESSION: No change from prior. Electronically signed by Haroldo Reyes 05/31/2018 6:33 AM
--- NOTE | 2018-05-31 08:09 | PROGRESS NOTE ---
DATE: 05/31/2018 SUBJECTIVE: The patient has been admitted due to right hemothorax. status post right chest tube placement. X-ray today showed just a small right basilar pleural effusion, stable cardiomegaly, no pneumothorax and no focal infiltrates. The right chest tube in good position. The plan is to water-seal her tube today and probably remove the tube tomorrow if she is doing okay. OBJECTIVE: Vital Signs: Temperature 98.3, pulse 99, respiratory rate 22, blood pressure 117/73, oxygen saturation 95 on 3 L of nasal cannula. HEENT: Head normocephalic. No trauma. PERRLA. Neck: Supple. No JVD. No masses. Central trachea. Chest: Clear to auscultation. She does have a chest tube on the right side of the thorax. I do not see any bleeding coming up around the tube, no signs of infection. Some crepitus at the right base. Abdomen: Soft, nontender, nondistended. No hepatosplenomegaly. Extremities: No edema. No clubbing. No cyanosis. Neurological examination: The patient is alert and oriented x3. No focal deficits. LABORATORY: WBC 9.5, hemoglobin 8.5, hematocrit 26.3, platelets 143. Sodium 142, potassium 4.3, chloride 101, bicarbonate 26. BUN 25, creatinine 1.3, glucose 155, calcium 8.6. AST 13, ALT 10, alkaline phosphatase 28, albumin 3.4. ASSESSMENT AND PLAN: 1. Acute iatrogenic right-sided hemothorax status post right chest tube placement. Surgery Department following this patient closely. She seems to be more stable Cardiology Department following this patient, as well as Pulmonary Department. We will continue to follow with their recommendations. 2. Hypercapnic respiratory failure. Continue with the same management. She is getting better. Pulmonary Department on board. 3. Acute blood loss anemia. Hemoglobin and hematocrit decreased compared with yesterday from 10.7 to 8.5. We will keep an eye on that and transfuse as needed. I will ask for a new hemoglobin and hematocrit today in the afternoon. 4. Atrial fibrillation with rapid ventricular response. Cardiology on board. Continue with the same management. 5. Acute kidney injury which is mild. Her creatinine is 1.3 and her previous creatinine in 2016 was 1.2; probably this is her baseline. 6. Nicotine dependence. This patient has been highly advised against tobacco use. I will continue with daily cessation education. 7. Deep vein thrombosis prophylaxis with sequential compression devices. cc: Kermit West MD
[2018-05-31] MEDS: CULTURELLE PO SCH (08:59)
[2018-05-31] MEDS: LEVAQUIN 500 MG/D5W 500 MG/100 ML IVPB IV SCH (08:59)
[2018-05-31] MEDS: ROCEPHIN 1 GM in NS 50 ML IV SCH (10:04)
--- NOTE | 2018-05-31 11:33 | GENERAL SURGERY PROGRESS NOTE ---
DATE: 05/31/2018 SUBJECTIVE: She feels much better. Hemodynamically, she is more stable with less tachycardia and her heart rate has been better controlled. OBJECTIVE: Blood pressure 107/61, oxygen saturation 94%. She is alert. Right chest tube is in place. There is serosanguineous drainage, another couple hundred overnight. No air leak. It is to suction. LABORATORY DATA: White count 9, hematocrit 26, down from 32, platelets 143,000. Creatinine is 1.3. DIAGNOSTIC STUDIES: I reviewed her x-ray. It shows no pneumothorax with a small amount of pleural effusion, but good position of her chest tube. ASSESSMENT AND PLAN: A 78-year-old female with right-sided hemothorax after percutaneous lung biopsy. She has chest tube in place. Output is pretty much decreased. Will water seal it and repeat her x-ray tomorrow. If the output remains minimal, we can plan on removing her tube tomorrow. cc: Padma Jean Baptiste MD
--- NOTE | 2018-05-31 14:58 | CONSULTATION ---
DATE OF CONSULTATION: 05/31/2018 IMPRESSION: 1. Chronic atrial fibrillation. 2. Right-sided hemothorax following CT-guided needle biopsy of lung lesion. Patient is status post chest tube drainage. 3. Atherosclerotic coronary disease with history of previous angioplasty/stenting of proximal right coronary artery in the past. This has been several years ago. Left ventricular ejection fraction has been normal on noninvasive studies. 4. Peripheral vascular disease. 5. Hyperlipidemia. 6. Diabetes mellitus. 7. Obesity. RECOMMENDATIONS: 1. Overall would continue management of chronic/permanent atrial fibrillation with rate control and anticoagulation. I agree with plans to pursue newer oral anticoagulant agent such as Xarelto or Eliquis once patient is able to take anticoagulation again. 2. Patient has been on "triple therapy" with aspirin, Plavix and warfarin. I would suggest transitioning to anticoagulant plus single anti-platelet agents such as baby aspirin daily, along with Xarelto or even managing patient with Xarelto alone in the future. This was discussed with the patient, and she wishes to discuss it further with her primary software developer manager, Dr. Bolanos. 3. Conservative cardiovascular management overall. HISTORY: This 78-year-old, white female with past history of chronic/permanent atrial fibrillation, atherosclerotic coronary disease, COPD, hyperlipidemia, and type 2 diabetes mellitus was admitted following development of hemothorax following needle biopsy of lung lesion. She also has history of previous tongue malignancy and bladder malignancy in the past. She recently was noted to have a lung lesion that was suspicious. Warfarin was discontinued a week ago. Per patient report, she underwent needle biopsy and developed dyspnea and respiratory failure following this related to hemothorax. She has been stabilized with chest tube. Anticoagulants remain on hold. She is currently on intravenous diltiazem for rate control. As an outpatient, she had been on atenolol for heart rate control. She had also been on clopidogrel baby aspirin daily and anticoagulation with warfarin. There are plans for her to switch to Xarelto when she is able to resume anticoagulation. She is asymptomatic from a cardiovascular standpoint at present. PAST MEDICAL HISTORY: 1. Chronic/permanent atrial fibrillation. 2. Atherosclerotic coronary disease with previous angioplasty/stenting of right coronary artery several years ago. Left ventricular ejection fraction has been normal. 3. Nonobstructive atherosclerotic carotid disease. 4. Type 2 diabetes mellitus, not requiring insulin. 5. Hypertension. 6. Hyperlipidemia. 7. Chronic obstructive pulmonary disease. 8. Previous tongue cancer status post resection. 9. History of malignancy involving bladder. PAST SURGICAL HISTORY: 1. Hysterectomy. 2. Cataract procedure. 3. Right breast surgery. 4. Unspecified bladder surgery. 5. Unspecified back surgery. ALLERGIES: She is allergic or intolerant to hydrocodone. SOCIAL HISTORY: She has history of previous heavy cigarette use for many years. She transiently started smoking for about a week in the last month after she became excessively stressed after family loss. She does not use alcohol. FAMILY HISTORY: Negative for premature coronary disease. REVIEW OF SYSTEMS: Pulmonary: Negative. Gastrointestinal: Negative. Constitutional: Negative. The remainder of the review of systems negative/noncontributory with 14 total systems reviewed. PHYSICAL EXAM: General: Reveals an overweight, elderly, white female in no distress on supplemental oxygen. Vital signs: Blood pressure 102/72, heart rate 96 with ECG monitor showing atrial fibrillation. Oxygen saturation 95% on nasal cannula oxygen at 3 L/minute. HEENT exam: Extraocular movements appear intact. Mucous membranes are moist. Neck: Supple without discernible jugular venous distention. Carotid bruits cannot be appreciated. Chest: Clear to auscultation bilaterally. Cardiac Exam: Reveals an irregular rate and rhythm without appreciable murmur or gallop. Abdomen: Soft, nontender. Bowel sounds are normal. Extremities: Without edema. Neurologic exam: Reveals her to be alert and fully oriented. Speech is fluent. She moves all 4 extremities equally well. Skin: Warm and dry. Psych exam: Reveals her mood to be appropriate. X-RAYS: ECG monitor shows atrial fibrillation. Twelve-lead EKG is not in the electronic medical record at this point. LABORATORY DATA: Laboratory data includes a white blood cell count 9.51, hematocrit 26.3, hemoglobin 8.5, platelet count 143. Sodium 142, potassium 4.3, chloride 101, carbon dioxide 26. BUN 25, creatinine 1.3, glucose 155. Initial troponin-T less than 0.01. Followup troponin-T less than 0.01. Initial CPK 110 and followup CPK 118. Albumin 3.4. cc: Kunal Cristobal MD
--- NOTE | 2018-05-31 15:45 | PULMONOLOGY PROGRESS NOTE ---
DATE: 05/31/2018 SUBJECTIVE: The patient is awake, alert, and conversant. She does report some pain in her right chest wall associated with coughing. OBJECTIVE: Output from the chest tube 140 mL. BP 106/54. Heart rate 83. Respiratory rate 27. Oxygen saturation 98%. HEENT: Pupils are equal and reactive. Oropharynx is clear. Neck is supple. Chest reveals pleural rub on the right, no air leak identified. Cardiac exam: S1, S2. Abdomen: Soft. Extremities: Without edema. LABORATORY: White blood count 9.51, hemoglobin 10.5, (decreased 2.2 grams), platelet count 143,000. INR 1.23. Chest x-ray reveals small right pleural effusion with stable cardiomegaly. IMPRESSION: 1. PET positive for pulmonary nodule. 2. History of metastatic head and neck cancer. 3. Hemothorax following CT guided biopsy. 4. Acute hypoxemic respiratory failure. Output from the chest tube appears to be diminishing. PLAN: 1. Continue oxygen for hypoxemic respiratory failure. 2. Continue chest tube management per Dr. Kevin Jean Baptiste. 3. Transfuse as necessary. cc: Kenrick Rodriguez MD
[2018-05-31 16:07] LABS: HEMATOCRIT 30.3 % (37.0-47.0); HEMOGLOBIN 9.7 g/dL (12.0-16.0)
[2018-05-31] MEDS: LYRICA PO SCH (20:15)
[2018-06-01] MEDS: MORPHINE IV PRN ×5 (04:54→22:28)
[2018-06-01 06:20] LABS: ALLEN TEST YES; BE 3.7 mmoll (-3.0-3.0); BLOOD TYPE ARTERIAL; HCO3-(ACT) 27.8 mmoll (20.0-26.0); METHB 1.1 % (0.0-1.5); O2(CT) 13.1 mL/dL (15.0-23.0); O2HB 96.6 % (95.0-99.0); PCO2(98.6) 27 mmHg (35-45); PO2(98.6) 192 mmHg (60-100); SAMPLE BLOOD; SAO2 99.2 % (95.0-100.0); THB 9.3 g/dL (11.5-17.4)
[2018-06-01 06:21] LABS: MODALITY CANNULA; pH(98.6) 7.58 (7.35-7.45)
[2018-06-01 06:48] LABS: INR 1.14; PROTIME 15.5 Seconds (11.0-16.0)
[2018-06-01 07:17] LABS: BASO# 0.01 X1000 (0.0-0.2); BASO% 0.1 % (0.0-0.8); EOS# 0.03 X1000 (0.0-0.7); EOS% 0.4 % (0.0-10.0); HEMATOCRIT 28.1 % (37.0-47.0); HEMOGLOBIN 9.2 g/dL (12.0-16.0); IMM GRAN# 0.02 X1000 (0.0-0.04); IMM GRAN% 0.3 % (0.0-0.5); LYMPH# 0.53 X1000 (1.2-3.4); LYMPH% 7.6 % (20.5-51.1); MCH 30.2 PG (27-31); MCHC 32.7 g/dL (33-37); MCV 92.1 FL (81-99); MONO# 0.73 X1000 (0.11-0.59); MONO% 10.5 % (1.7-9.3); MPV 11.4 FL (7.4-10.4); NEUT# 5.65 X1000 (1.4-6.5); NEUT% 81.1 % (42.2-75.2); PLT 116 X1000 (130-400); RBC 3.05 XMIL (4.2-5.4); RDW 14.7 % (11.5-14.5); WBC 6.97 X1000 (4.8-10.8)
[2018-06-01] MEDS: PRILOSEC PO SCH (08:18)
[2018-06-01] MEDS: CULTURELLE PO SCH (08:18)
--- NOTE | 2018-06-01 08:29 | PROGRESS NOTE ---
DATE: 06/01/2018 SUBJECTIVE: This patient is tolerating p.o. No bowel movement so far, but she is refusing stool softeners. She states that she will have a bowel movement after drinking her protein shakes. She is still complaining of some pain, but it is getting better. The right chest tube looks in a good position. No signs of infection. No bleeding around the tube. Surgery on board, as well as Pulmonary Department and Cardiology. OBJECTIVE: Vital Signs: Temperature 97.9 degrees, pulse 86, respiratory rate 16, blood pressure 119/77, oxygen saturation 99 on 3 L of nasal cannula. HEENT: Head normocephalic. No trauma. PERRLA. Neck: Supple. No JVD. No masses. Central trachea. Chest: Clear to auscultation. She has a chest tube on the right side of the thorax. Like I said, no bleeding coming from around tube or signs of infection. Crepitus at the right base. Abdomen: Soft. Nontender, nondistended, no hepatosplenomegaly. Positive bowel sounds. Extremities: No edema. No clubbing. No cyanosis. Neurological examination: The patient is alert and oriented x3. No focal deficits. LABORATORY: WBC 6.9, hemoglobin 9.2, hematocrit 28.1, platelets 116. Pending CMP. ASSESSMENT AND PLAN: 1. Acute iatrogenic right-sided hemothorax status post right chest tube placement. Surgery Department following this patient closely. She seems to be more stable. Pulmonary Department, Cardiology Department following this patient as well. 2. Hypercapnic respiratory failure. Continue with same treatment. She is getting better. She is not complaining of shortness of breath. 3. Acute blood loss anemia. Hemoglobin and hematocrit have been stable. 4. Atrial fibrillation with rapid ventricular response. Cardiology on board. Continue with the same treatment. Stable. 5. Acute kidney injury which is mild, but probably this is her baseline. 6. Nicotine dependence. This patient has been highly advised against tobacco abuse. I will continue with daily cessation education. 7. Deep vein thrombosis prophylaxis with sequential compression devices. cc: Kermit West MD
[2018-06-01 08:32] LABS: ALB/GLOB RATIO 1.2; ALBUMIN 3.1 g/dL (3.5-5.0); CALCIUM 9.1 mg/dL (8.8-10.2); POTASSIUM 4.1 mmol/L (3.5-5.1); TOTAL BILIRUBIN 0.43 mg/dL (0.20-1.00); TOTAL PROTEIN 5.6 g/dL (6.3-8.3)
--- NOTE | 2018-06-01 08:44 | Diag Imaging Result Doc PS360 ---
EXAM: CHEST-PORTABLE INDICATION: hemothorax TECHNIQUE: One view COMPARISON: 05/31/2018 FINDINGS: The right chest tube is in stable position. However, there has been development of a moderate-sized pneumothorax at the right lung apex and right lung base. The total volume of the pneumothorax is about 30%. Atelectasis is noted at the right lung base. A small amount of pleural fluid persists at the right lung base. Otherwise, no new consolidation is identified. Cardiac silhouette is stable. IMPRESSION: Development of a moderate-sized right pneumothorax as described. Electronically signed by Imer Ortiz 06/01/2018 8:42 AM
[2018-06-01] MEDS: LEVAQUIN 500 MG/D5W 500 MG/100 ML IVPB IV SCH (09:19)
[2018-06-01] MEDS: ZOFRAN IV PRN ×3 (09:20→17:38)
[2018-06-01] MEDS: ROCEPHIN 1 GM in NS 50 ML IV SCH (11:30)
--- NOTE | 2018-06-01 13:59 | GENERAL SURGERY PROGRESS NOTE ---
DATE: 06/01/2018 SUBJECTIVE: Hemodynamically stable from a pulmonary standpoint. She is improving. Chest tube has been water seal and she tolerated this. Output remains still 250 overnight; it is more thin, serosanguineous. No air leak as to water seal. White count 6. Hematocrit is overall stable and it is 28. ABG is appropriate. Creatinine is 1.0. She has had an x-ray that shows a moderate- sized pneumothorax about 30%. ASSESSMENT AND PLAN: A 78-year-old female status post oxygen hemothorax. She does have an air leak, but she does have a pneumothorax on her chest x-ray this morning. We will place it back to suction and continue it if still putting out, and we could remove it anyway. cc: Padma Jean Baptiste MD
--- NOTE | 2018-06-01 14:32 | PULMONOLOGY PROGRESS NOTE ---
DATE: 06/01/2018 SUBJECTIVE: The patient reports "I have had the best night I have had" since admission to the hospital. She is without specific complaints. OBJECTIVE: Maximum temperature in the last 24 hours is 99.7 degrees. Blood pressure 119/77. Heart rate 86. Respiratory rate 16. Oxygen saturation 97% on 2 L per nasal cannula. Chest tube output 250 mL. HEENT: Pupils are equal and reactive. Oropharynx is clear. Neck is supple. Chest reveals coarse breath sounds, right base. Cardiac exam: S1, S2. Abdomen: Soft and without hepatosplenomegaly. Extremities: Without edema. LABORATORY: White blood count 6.97, hemoglobin 9.2, platelet count 116,000. Arterial blood gas: pH 7.58, pCO2 27, pO2 of 192, Chemistries with sodium of 132, potassium 4.1, chloride 98, bicarbonate 25, BUN 18, creatinine 1.0. IMAGING: Chest x-ray reveals development of small pneumothorax on the right. IMPRESSION: A 78-year-old status post biopsy of a PET positive pulmonary nodule, history of metastatic head and neck cancer, hemothorax following CT guided biopsy, small pneumothorax, with acute hypoxic respiratory failure. Chest tube is being managed by Dr. Jean Baptiste, who has elected to leave the tube in place for another 24 hours. Her hematocrit appears to be stable. RECOMMENDATIONS: 1. Agree with continued chest tube placement, given new pneumothorax. 2. Check patency of the tube. 3. Transfuse p.r.n. 4. Continue ICU monitoring. cc: Kenrick Rodriguez MD
[2018-06-01] MEDS: CARDIZEM PO SCH ×2 (15:11→19:51)
[2018-06-01] MEDS: LYRICA PO SCH (21:15)
[2018-06-02] MEDS: CARDIZEM PO SCH ×4 (02:49→20:33)
[2018-06-02] MEDS: MORPHINE IV PRN ×3 (02:50→18:05)
[2018-06-02] MEDS: PRILOSEC PO SCH (06:26)
[2018-06-02] MEDS ORDERED: MIRALAX PO ONE (08:23)
--- NOTE | 2018-06-02 08:31 | Diag Imaging Result Doc PS360 ---
EXAM: CHEST-PORTABLE INDICATION: hemothorax TECHNIQUE: One view COMPARISON: 06/01/2018 FINDINGS: The right chest tube is in stable position. There has been a significant decrease in the right-sided pneumothorax during the interval. There is now only a small amount of pleural gas at the right lung apex that is around 5% of the right hemithorax. There is still a small amount of residual pleural fluid at the right lung base that is similar to the previous study. Atelectasis at the right lung base has improved due to the decrease in the pneumothorax. No new consolidation is identified. Cardiac silhouette is stable. IMPRESSION: Interval significant decrease in the right-sided pneumothorax as described. Electronically signed by Imer Ortiz 06/02/2018 8:29 AM
[2018-06-02] MEDS: CULTURELLE PO SCH (09:15)
[2018-06-02] MEDS: LEVAQUIN 500 MG/D5W 500 MG/100 ML IVPB IV SCH (09:15)
[2018-06-02 09:19] LABS: HEMOGLOBIN 8.8 g/dL (12.0-16.0)
[2018-06-02 09:59] LABS: ALB/GLOB RATIO 1.2; ALBUMIN 3.2 g/dL (3.5-5.0); TOTAL BILIRUBIN 0.39 mg/dL (0.20-1.00); TOTAL PROTEIN 5.8 g/dL (6.3-8.3)
--- NOTE | 2018-06-02 10:27 | PROGRESS NOTE ---
DATE: 06/02/2018 SUBJECTIVE: The patient is lying comfortably in bed. She is still complaining of some pain. X- ray yesterday showed some pneumothorax. I checked the x-ray today and it seems to be better. Vital signs are stable. No bowel movement so far so I will try some MiraLAX today. OBJECTIVE: Vital Signs: Temperature 98.3 degrees, pulse 84, respiratory rate 23, blood pressure 113/55, oxygen saturation 94% on room air. HEENT: Head normocephalic. No trauma. PERRLA. Neck: Supple. No JVD. No masses. Central trachea. Chest: She has some crepitus in the right base. Chest tube on the right side of the thorax. No bleeding around the tube or any signs of infection. Abdomen: Soft, nontender, nondistended. No hepatosplenomegaly. Positive bowel sounds. Extremities: No edema. No clubbing. No cyanosis. Neurological: The patient is alert and oriented x3. No focal deficits. LABORATORY: WBC 6.9, hemoglobin 9.2, hematocrit 28.1, platelets 116,000. Sodium 132, potassium 4.1, chloride 98, bicarbonate 25, BUN 18, creatinine 1, glucose 208, calcium 9.1, albumin 3.1. ASSESSMENT AND PLAN: 1. Acute iatrogenic right-sided hemothorax, status post right chest tube placement. X-ray yesterday showed pneumothorax. We kept the tube inside the chest. Surgery Department and Pulmonary Department are following this patient closely. Today the x-ray seems to be better. Will monitor. 2. Hypercapnic respiratory failure. Continue with the same treatment. She is getting better. She is not complaining of shortness of breath at this moment. 3. Acute blood loss anemia. Hemoglobin and hematocrit have been stable. 4. Acute kidney injury, resolved. 5. Atrial fibrillation with rapid ventricular response. Cardiology on board. Continue with the same management. Stable. 6. Nicotine dependence. This patient has been highly advised against tobacco use. I will continue with daily cessation education. 7. Deep vein thrombosis prophylaxis with sequential compression devices. 8. Mild thrombocytopenia. The platelet count has been trending down slowly. I will just keep an eye on that. She is not on any blood thinners at this moment. cc: Kermit West MD
[2018-06-02] MEDS: ROCEPHIN 1 GM in NS 50 ML IV SCH (11:14)
[2018-06-02] MEDS: HUMULIN R SUBQ SCH ×3 (11:14→20:35)
[2018-06-02] MEDS: ZOFRAN IV PRN (12:39)
--- NOTE | 2018-06-02 13:32 | PULMONOLOGY PROGRESS NOTE ---
DATE: 06/02/2018 SUBJECTIVE: The patient is awake, alert and conversant. She is sitting in a bedside chair. OBJECTIVE: General: She continued to have blood drainage from her right chest tube. Amount over the last 24 hours recorded as 140 mL. The nurse reports she has had greater than 100 mL since 6 o'clock this morning. Vital signs: Blood pressure is 113/56, heart rate 77, respiratory rate 24 and oxygen saturation 98% on room air. HEENT: Pupils are equal and reactive. Oropharynx is clear. Neck: Supple. Chest: Coarse rub at the right base. Cardiac: S1, S2. Abdomen: Soft without hepatosplenomegaly. Extremities: Without edema. LABORATORY: Chest x-ray reveals partial resolution of the right hemithorax. Hemoglobin is stable at 8.8, but a CBC was not performed. Chemistry showed a sodium of 134, potassium 4.0, chloride 97, bicarbonate 28, BUN 14 and creatinine 1.0 with a glucose of 263. IMPRESSION: 78-year-old status post biopsy of a PET positive pulmonary nodule, history of metastatic head and neck cancer, with a hemothorax and a small pneumothorax and acute hypoxemic respiratory failure. The patient continues to have some bleeding with slight drop in hematocrit. The patient's platelet count had dropped yesterday, but platelet count has not been checked this morning. With ongoing bleeding and the pulmonary nodule adjacent to the right atrium, I will perform a CT scan of the thorax with contrast to reevaluate the right chest. RECOMMENDATIONS: 1. CBC with platelet count to evaluate need for platelet replacement. 2. CT scan of the thorax with contrast. 3. Transfuse platelets and blood p.r.n.. 4. Continue ICU monitoring. 5. Continue oxygen for acute hypoxemic respiratory failure. cc: Kenrick Rodriguez MD
[2018-06-02 13:36] LABS: BASO# 0.01 X1000 (0.0-0.2); BASO% 0.2 % (0.0-0.8); EOS# 0.14 X1000 (0.0-0.7); EOS% 2.2 % (0.0-10.0); HEMATOCRIT 28.9 % (37.0-47.0); HEMOGLOBIN 9.2 g/dL (12.0-16.0); IMM GRAN# 0.02 X1000 (0.0-0.04); IMM GRAN% 0.3 % (0.0-0.5); LYMPH# 0.66 X1000 (1.2-3.4); LYMPH% 10.4 % (20.5-51.1); MCH 29.2 PG (27-31); MCHC 31.8 g/dL (33-37); MCV 91.7 FL (81-99); MONO% 9.5 % (1.7-9.3); MPV 11.1 FL (7.4-10.4); NEUT# 4.89 X1000 (1.4-6.5); NEUT% 77.4 % (42.2-75.2); PLT 192 X1000 (130-400); RBC 3.15 XMIL (4.2-5.4); RDW 14.5 % (11.5-14.5); WBC 6.32 X1000 (4.8-10.8)
--- NOTE | 2018-06-02 16:40 | GENERAL SURGERY PROGRESS NOTE ---
DATE: 06/02/2018 SUBJECTIVE: After we had to place her tube back to suction yesterday for increased pneumothorax. She has been overall asymptomatic overnight. No difficulty breathing. Chest tube output has been minimal. No air leak. I reviewed her vitals, no fevers, pulse 77, blood pressure 113/56. Right chest tube has serosanguineous drainage, no air leak, is -20 suction. LAB: Hematocrit stable at 28. I reviewed her x-ray this morning shows near-complete resolution of the pneumothorax. No significant effusion. ASSESSMENT/PLAN: 78-year-old female with right-sided hemothorax. Will decrease her suction to 10 today and hopefully water seal tomorrow if her lung remains elevated. Surgical associates will be following in my absence this week, will discuss the patient with them otherwise will continue medical management, chest tube management. cc: Padma Jean Baptiste MD
--- NOTE | 2018-06-02 18:54 | Diag Imaging Result Doc PS360 ---
EXAM: CT THORAX W/CONTRAST INDICATION: hemothorax TECHNIQUE: This exam was performed using automated exposure control, adjustment of mA or kV according to patient size, and/or use of iterative reconstruction technique. COMPARISON: 05/29/2018 FINDINGS: A right thoracostomy tube has been placed since the previous study. There is a small residual hemothorax at the right lung base but has decreased substantially during the interval. The right heart tamponade has resolved. As opposed to the previous study, there is no active arterial extravasation of contrast on the current study. There is a relatively small right pneumothorax that has developed occupying about 10-15% of the right hemithorax. There is stable significant atelectasis involving the right lower lobe. There is mild left basilar atelectasis as well. There is trace pleural fluid on the left. There has been development of a small pericardial fluid collection. The density of the fluid is low indicating an effusion. Pulmonary emphysema is again noted. Limited views of the upper abdomen reveals several stones in the gallbladder lumen. IMPRESSION: 1.Interval significant decrease in size of the right hemothorax with no active vascular contrast extravasation identified on the current study. 2.Development of a relatively small right pneumothorax. 3.Other incidental findings detailed above. Electronically signed by Imer Ortiz 06/02/2018 6:52 PM
[2018-06-02] MEDS: LYRICA PO SCH (20:34)
[2018-06-03] MEDS: CARDIZEM PO SCH ×4 (02:55→22:41)
[2018-06-03 05:57] LABS: HEMATOCRIT 28.5 % (37.0-47.0); HEMOGLOBIN 9.1 g/dL (12.0-16.0)
[2018-06-03] MEDS: PRILOSEC PO SCH ×2 (05:57→06:20)
[2018-06-03] MEDS: HUMULIN R SUBQ SCH ×4 (06:20→22:41)
[2018-06-03 07:22] LABS: CREATININE 1.1 mg/dL (0.5-0.9); POTASSIUM 4.3 mmol/L (3.5-5.1)
--- NOTE | 2018-06-03 08:22 | PROGRESS NOTE ---
DATE: 06/03/2018 SUBJECTIVE: The patient is lying comfortably in bed. She is still complaining of mild pain at the level of the right thoracic area. CT scan done yesterday showed a significant decrease in size of the right hemothorax with no active vascular contrast extravasation identified on the current study, development of a relatively small right pneumothorax. Surgery department and pulmonary department following this patient closely. She seems to be stable. OBJECTIVE: Vital Signs: Temperature 98 degrees, pulse 89, respiratory rate 22, blood pressure 113/62, oxygen saturation 94% on room air. HEENT: Head normocephalic. No trauma. PERRLA. Neck: Supple. No JVD. No masses. Central trachea. Chest: She has some crepitus in the right base. Chest tube on the right side of the thorax. No bleeding around the tube or signs of infection. Abdomen: Soft, nontender, nondistended. No hepatosplenomegaly. Extremities: No edema. No clubbing. No cyanosis. Neurological Examination: The patient is alert and oriented x3. No focal deficits. Laboratory: Hemoglobin 9.1, hematocrit 28.5. Sodium 137, potassium 4.3, chloride 99, bicarbonate 27, BUN 13, creatinine 1.1, glucose 174, calcium 9. ASSESSMENT AND PLAN: 1. Acute iatrogenic right-sided hemothorax, status post right chest tube placement. X-ray a couple days ago showed pneumothorax as well. We kept the tube inside the chest to take care of it. Surgery department and pulmonary department following this patient closely. Chest CT scan showed an improvement of the right hemothorax and there is just a mild pneumothorax. 2. Hypercapnic respiratory failure. Continue with the same treatment. She is getting better. She has no complaint of shortness of breath at this moment. 3. Acute blood loss anemia. Stable. 4. Acute kidney injury. Resolved. 5. Atrial fibrillation with rapid ventricular response. Cardiology on board. Continue with the same management. 6. Nicotine dependence. This patient has been highly advised against tobacco use. I will continue with daily cessation education. 7. Deep vein thrombosis prophylaxis with sequential compression devices. 8. Mild thrombocytopenia on 06/01/2018. Actually better yesterday at 192. Tomorrow, we will ask for a new platelet count. Continue to monitor. cc: Kermit West MD
[2018-06-03] MEDS: CULTURELLE PO SCH (08:25)
[2018-06-03] MEDS: LEVAQUIN 500 MG/D5W 500 MG/100 ML IVPB IV SCH (10:20)
--- NOTE | 2018-06-03 10:20 | GENERAL SURGERY PROGRESS NOTE ---
DATE: 06/03/2018 SUBJECTIVE: The patient complains of minimal shortness of breath that is overall improved. No chest pain. No fevers or chills. OBJECTIVE: She is afebrile. Vital signs are stable. Chest tube output 240 mL over the last 24 hours. It is bloody fluid. No air leak noted in the chest tube.General: She is alert oriented x 4. No acute distress. Cardiovascular: Regular rate and rhythm. Respiratory: Bilateral breath sounds. No increased work of breathing. LABORATORY: Hemoglobin 9.1, hematocrit 28.5. IMAGING: None today. CT from yesterday was reviewed showing significant decrease in the right hemothorax. There is a small right pneumothorax and there is left basilar atelectasis. ASSESSMENT AND PLAN: A 78-year-old female with right hemothorax improved and small right pneumothorax status post needle biopsy of lung nodule. Overall, she looks stable. I will monitor her chest tube output again over the next 24 hours and repeat imaging tomorrow and consider removing the chest tube in the next day or two. cc: Johnny Shaffer MD
[2018-06-03] MEDS: ROCEPHIN 1 GM in NS 50 ML IV SCH (10:34)
--- NOTE | 2018-06-03 12:21 | PULMONOLOGY PROGRESS NOTE ---
DATE: 06/03/2018 SUBJECTIVE: The patient reports some pain with inspiration. Otherwise, she is without complaints. OBJECTIVE: Chest tube output is 240 mL. Blood pressure is 119/83, heart rate 89, respiratory rate 28, oxygen saturation is 97% on room air. HEENT: Pupils are equal and reactive. Oropharynx is clear. Neck is supple. Chest reveals coarse rhonchi at the right base. Cardiac: S1, S2. Abdomen is soft, without hepatosplenomegaly. Extremities are without edema. DIAGNOSTIC DATA: Biopsy of the lung reveals a squamous cell on the preliminary with a piece of vein adjacent to the tumor. CT scan of the thorax reveals decrease in right hemithorax with small right pneumothorax and a small pericardial effusion which has developed but no evidence of tamponade. IMPRESSION: A 78 year old with metastatic head and neck cancer, hemothorax following biopsy, small pneumothorax. Hemodynamically she is doing well. She has had no significant change in her hemoglobin or hematocrit over the last 24 hours. RECOMMENDATIONS: 1. Continue chest tube management per General Surgery. 2. Continue bronchial hygiene. 3. Wean oxygen as tolerated. 4. Consider transfer to the floor when chest tube has been removed. cc: Kenrick Rodriguez MD
[2018-06-03] MEDS: MORPHINE IV PRN ×2 (14:28→22:46)
[2018-06-03] MEDS: LYRICA PO SCH (22:41)
[2018-06-04] MEDS: PRILOSEC PO SCH ×2 (05:46→06:23)
[2018-06-04] MEDS: HUMULIN R SUBQ SCH ×4 (06:24→22:15)
[2018-06-04 06:29] LABS: HEMATOCRIT 27.8 % (37.0-47.0); HEMOGLOBIN 8.8 g/dL (12.0-16.0); MCH 29.4 PG (27-31); MCHC 31.7 g/dL (33-37); RBC 2.99 XMIL (4.2-5.4); RDW 14.9 % (11.5-14.5); WBC 5.58 X1000 (4.8-10.8)
[2018-06-04 06:58] LABS: AGAP 9; BUN 12 mg/dL (8-22); CALCIUM 8.7 mg/dL (8.8-10.2); CHLORIDE 99 mmol/L (98-107); COSMO 274; CREATININE 0.8 mg/dL (0.5-0.9); ESTIMATED GFR > 60; GLUCOSE 173 mg/dL (70-104); POTASSIUM 4.7 mmol/L (3.5-5.1); SODIUM 135 mmol/L (136-145); TCO2 27 mmol/L (25-35)
--- NOTE | 2018-06-04 08:05 | Diag Imaging Result Doc PS360 ---
EXAM: CHEST-PORTABLE INDICATION: dyspnea TECHNIQUE: One view COMPARISON: 06/02/2018 FINDINGS: The right chest tube is in stable position. There is trace residual pneumothorax at the right lung apex. It appears to be less than the previous study. The small pleural fluid collection at the right lung base with adjacent atelectasis and infiltrate is approximately stable. No new consolidation is identified. Cardiac silhouette is stable. IMPRESSION: Trace residual pneumothorax at the right lung apex that appears to have decreased in size. Stable chest, otherwise. Electronically signed by Imer Ortiz 06/04/2018 8:02 AM
[2018-06-04] MEDS: CARDIZEM CD PO SCH (09:17)
[2018-06-04] MEDS: CULTURELLE PO SCH (09:17)
[2018-06-04] MEDS: LEVAQUIN 500 MG/D5W 500 MG/100 ML IVPB IV SCH (09:18)
--- NOTE | 2018-06-04 09:29 | EKG Report ---
Test Performed on : 06/04/2018 07:46:43 AM Test Reason : afib Blood Pressure : / mmHG Vent. Rate : 083 BPM Atrial Rate : 078 BPM P-R Int : 000 ms QRS Dur : 080 ms QT Int : 360 ms P-R-T Axes : 054 040 -18 degrees QTc Int : 423 ms Undetermined rhythm Possible Anterior infarct , age undetermined Abnormal ECG When compared with ECG of 08-DEC-2013 18:21, Current undetermined rhythm precludes rhythm comparison, needs review Inverted T waves have replaced nonspecific T wave abnormality in Inferior leads Nonspecific T wave abnormality now evident in Lateral leads Confirmed by Cameron ATKINSON, Mike Meyer ([id number]) on 06/04/2018 1:12:54 PM
[2018-06-04] MEDS: ROCEPHIN 1 GM in NS 50 ML IV SCH (10:55)
--- NOTE | 2018-06-04 11:08 | PROGRESS NOTE ---
DATE: 06/04/2018 SUBJECTIVE: The patient was admitted on 05/29/2018 and had acute iatrogenic right-sided hemothorax, status post chest tube. She had some hypercapnic respiratory failure, acute blood loss anemia, atrial fibrillation with rapid ventricular response, was given some IV Cardizem, acute kidney injury. She has a history of throat cancer, coronary artery disease, COPD, and atrial fibrillation. Presented to the CT department in distress. She had a postprocedure CT scan that showed a right-sided pneumothorax, mild left shift of the mediastinum. She was on Coumadin for atrial fibrillation. She feels better. She says she is breathing better. Eating. Bowels she said are normal for her. They are usually loose. OBJECTIVE: Vital Signs: Temp 98.6 degrees, pulse 89, respirations 18, blood pressure 135/55. HEENT: Pupils are equal. Neck: No distended neck veins. Lungs: Clear in all lung [place]. Cardiovascular: Regular rhythm and rate without murmur or S3. Abdomen: Soft. Skin: Warm and dry. Urine output is 3500 mL. Blood sugars are 207, 173, 230. ASSESSMENT AND PLAN: 1. Acute iatrogenic right-sided hemothorax, status post right chest tube placement, and seems to be improving. Good chest tube output. Clinically, she seems to feel better and be breathing better. 2. Hypercapnic respiratory failure, improved. 3. Acute blood loss anemia. Hemoglobin and hematocrit stable. 4. Acute kidney injury, resolved. 5. Atrial fibrillation with rapid ventricular response. Continue same management. 6. Nicotine dependence. The patient has been advised against further tobacco. 7. Deep venous thrombosis prophylaxis. She has sequential compression devices. 8. Mild thrombocytopenia, which I think is improved. Platelet count is 212,000. REVIEW OF ORDERS: She is on: 1. Lyrica 50 mg at bedtime. 2. Cardizem CD 120 mg daily. 3. Lactobacillus 1 tablet a day. 4. Levofloxacin 500 mg IV daily. 5. Phenylephrine as needed. 6. Prilosec 40 mg daily. 7. Ceftriaxone 1 gram every 24 hours. I see where she got 1 unit of phoresed platelets. She got 2 units of packed red blood cells and 2 units fresh frozen. LABORATORY DATA: ProTime is 15.5, INR is 1.14 on 06/01/2018. In looking at her chemistries from today, sodium 135, potassium 4.7, chloride 99, BUN 12, creatinine 0.8. Blood sugars 194, 173, 173, 230, so look pretty well controlled. cc: Mike Barnes MD
[2018-06-04] MEDS: MORPHINE IV PRN ×2 (11:54→22:36)
--- NOTE | 2018-06-04 12:24 | GENERAL SURGERY PROGRESS NOTE ---
DATE: 06/04/2018 SUBJECTIVE: The patient is doing well today. No chest pain or shortness of breath. OBJECTIVE: Vital Signs: She is afebrile. Vital signs are stable. Right chest tube output is serosanguineous and 110 mL over the last 24 hours with no air leak. CV: Regular rate and rhythm. Respiratory: Bilateral equal breath sounds. Imaging: Chest x-ray reveals trace residual right apical pneumothorax. It is smaller than previously and some atelectasis in the base. ASSESSMENT/PLAN: A 78-year-old female with a right pneumothorax and hemothorax after a percutaneous lung biopsy. She is improving. I will remove the chest tube today. We will follow up the chest x-ray tomorrow. cc: Johnny Shaffer MD
--- NOTE | 2018-06-04 19:56 | PULMONOLOGY PROGRESS NOTE ---
DATE: 06/04/2018 SUBJECTIVE: The patient feels better this afternoon. She has significant pain with removal of the chest tube and expressed some anger associated with removal of the tube and the tape. She reports some drainage around the dressing with coughing episode this evening. OBJECTIVE: Blood pressure is 119/88, heart rate 91, respiratory rate 17, oxygen saturation is 98% on room air. She has been afebrile for the last 24 hours. HEENT: Pupils are equal and reactive. Oropharynx is clear. Neck is supple. Chest reveals decreased breath sounds at the right base with surgical dressing in place. It currently has been redressed and is dry. Cardiac exam: S1, S2. Abdomen is soft. Extremities are without edema. LABORATORY DATA: White blood count 5.6, hemoglobin 8.8, platelet count 212,000. Sodium 135, potassium 4.7, chloride 99, bicarbonate 27, BUN 12, creatinine 0.8. IMPRESSION: A 78 year old with metastatic head and neck cancer, hemothorax and pneumothorax following CT guided biopsy. She appears to be doing well hemodynamically and her hemoglobin has been stable over the last 48 hours. She had her chest tubes removed earlier today. RECOMMENDATIONS: 1. Continue bronchial hygiene. 2. Continue to monitor hemoglobin level. 3. Two-view chest x-ray tomorrow. cc: Kenrick Rodriguez MD
[2018-06-04] MEDS: LYRICA PO SCH (22:15)
[2018-06-05] MEDS: PRILOSEC PO SCH (06:32)
[2018-06-05] MEDS: MORPHINE IV PRN ×2 (06:35→20:18)
[2018-06-05] MEDS: HUMULIN R SUBQ SCH ×4 (07:04→20:18)
--- NOTE | 2018-06-05 08:29 | Diag Imaging Result Doc PS360 ---
EXAM: CHEST-PORTABLE 06/05/2018 HISTORY: pneumothorax TECHNIQUE: AP portable upright at 0806 COMMENT: There is a right pleural effusion. There has been some diminishment in the opacification of the right base compared to 06/04/2018. There is also improvement in the platelike atelectasis over the left base. The chest tube on the right has been removed. IMPRESSION: No evidence of residual or recurrent pneumothorax. Improved bibasilar atelectasis and right pleural effusion. Electronically signed by Dustin Lau 06/05/2018 8:27 AM
[2018-06-05] MEDS: CULTURELLE PO SCH (09:01)
[2018-06-05] MEDS: CARDIZEM CD PO SCH (09:01)
[2018-06-05] MEDS: LEVAQUIN 500 MG/D5W 500 MG/100 ML IVPB IV SCH (09:02)
[2018-06-05] MEDS ORDERED: NS 500 ML ONE (09:07)
--- NOTE | 2018-06-05 12:24 | PROGRESS NOTE ---
DATE: 06/05/2018 SUBJECTIVE: Ms. Talley is sitting up in a chair. She had her chest tube pulled yesterday, breathing comfortably. She has not walked much. Her bowels have not moved in a couple of days. She does not want me to give her anything for that. She feels like they are going to move. She still has her Qiu catheter in. OBJECTIVE: Vital Signs: Temperature 97.7 degrees, pulse 84, respirations 20, blood pressure 125/56. Urine output is 3500 mL. HEENT: Pupils are equal and round. Lungs: Clear in all lung ohara. Cardiovascular: Regular rhythm and rate without murmur or S3. Abdomen: Soft. Skin: Warm and dry. LABORATORY DATA: Blood sugars 173, 153, 169. DIAGNOSTIC STUDIES: Chest x-ray: No evidence of residual or recurrent pneumothorax. Improved bibasilar atelectasis and right pleural effusion. ASSESSMENT AND PLAN: A 78-year-old with metastatic head and neck cancer, hemothorax and pneumothorax following CT-guided needle biopsy. She appears to be doing well. Chest tube pulled. Hemodynamics are stable. Her hemoglobin has been stable. Plan is to pull her Qiu catheter today, continue physical therapy, and she would like to go home with home health. We will see if she is ready. Will continue to follow her. Hematocrit is 27, hemoglobin 8.8. Blood sugars have been well controlled, 189, 179, 169. So, maybe she can go home tomorrow with home health. cc: Mike Barnes MD
--- NOTE | 2018-06-05 12:38 | GENERAL SURGERY PROGRESS NOTE ---
DATE: 06/05/2018 SUBJECTIVE: The patient is doing okay today. No significant chest pain or shortness of breath. OBJECTIVE: She is afebrile. Vital signs are stable. General: She is awake, alert, oriented x3 in no acute distress. Respiratory: Bilateral breath sounds. No increased work of breathing. IMAGING: Chest x-ray reveals no residual pneumothorax. There is improved bibasilar atelectasis and right pleural effusion. ASSESSMENT AND PLAN: A 78-year-old female with right hemothorax and pneumothorax after lung biopsy. This has resolved or much improved. We will sign off. cc: Johnny Shaffer MD
[2018-06-05] MEDS: ROCEPHIN 1 GM in NS 50 ML IV SCH (13:24)
[2018-06-05] MEDS: LYRICA PO SCH (20:18)
[2018-06-06] MEDS: HUMULIN R SUBQ SCH ×2 (06:26→11:34)
[2018-06-06] MEDS: PRILOSEC PO SCH (08:58)
[2018-06-06] MEDS: CULTURELLE PO SCH (08:59)
[2018-06-06] MEDS: CARDIZEM CD PO SCH (08:59)
[2018-06-06] MEDS: LEVAQUIN 500 MG/D5W 500 MG/100 ML IVPB IV SCH (08:59)
--- NOTE | 2018-06-06 13:21 | DISCHARGE SUMMARY ---
ADMISSION DATE: 05/29/2018 DISCHARGE DATE: 06/06/2018 PRIMARY CARE PHYSICIAN: She does not she does not have a primary care physician. HOSPITAL COURSE: She had a procedure for CT-guided biopsy with a lesion in her lung and, following that, had hemothorax and pneumothorax. A 78-year-old white female with history of throat cancer, coronary artery disease, COPD, atrial fibrillation, who presented from the CT Department in respiratory distress after a lung biopsy for nodule evaluation post procedures. CT scan showed right-sided hemothorax. Very mild left shift to the mediastinum. She has been maintained O2 saturations pretty adequately; however, initial blood gas showed respiratory acidosis with lactic acidosis. She was anemic; hemoglobin was 10 and hematocrit 34 respectively. Chemistry showed some mild renal insufficiency, hyperglycemia and mild hypokalemia. She had about 15,000 to 2000 mL of blood. A chest tube was put in, and she has had that much initially. So, admitted. She was hypotensive and tachycardiac, rhythm being atrial fibrillation and rapid response. Dr. Jean Baptiste has already placed chest tube and is following. PAST MEDICAL HISTORY: 1. Congestive heart failure. Ejection fraction unknown. 2. Coronary artery disease. 3. Atrial fibrillation on Coumadin therapy which had been stopped for this procedure. 4. Diabetes mellitus type 2. 5. Nonobstructive carotid disease. 6. COPD. 7. Hyperlipidemia. 8. Hypertension. 9. 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 ADMISSION DIAGNOSIS: Acute iatrogenic right-sided hemothorax status post chest tube. Chest tube remained. Eventually drainage diminished and we were able to pull the chest tube I believe on 06/04/2018. She did have a little blood loss anemia and noticed a little bit of prerenal azotemia, but this remains stable. Dr. Jean Baptiste and Dr. Singh were following, and she had the tube pulled. Qiu catheter was taken out. She showed steady improvement and felt like she could be discharged home on 06/06/2018. She will follow up I believe with Dr. Jean Baptiste. DISCHARGE MEDICATIONS: She should be able to go home on: 1. Aspirin 81 mg a day. 2. Atenolol 25 mg a day. 3. Pletal 50 mg b.i.d. 4. Plavix 75 mg a day. 5. Lasix 40 mg a day. 6. Imdur 60 mg a day. 7. Culturelle 1 a day. 8. Metformin 1000 mg b.i.d. 9. She was taking naproxen 500 mg a day, omeprazole 40 mg q.a.m., potassium chloride 20 mEq b.i.d., Lyrica 50 mg at bedtime, Crestor 20 mg a day, Xarelto 20 mg a day, triamterene/hydrochlorothiazide 37.5/25 one a day. I think we will hold off on restarting the Coumadin. Actually right now she is on Cardizem 120 mg daily. She is not taking the Plavix or the aspirin. I think I am going to hold off on the Plavix and the aspirin and the Coumadin and the Pletal. Have her get follow up with her medical doctor, [place] Matos, who is a [employer], but will hold off on further anticoagulant until he feels like it is appropriate. cc: Mike Barnes MD
[2018-06-11 10:52] VITALS: BP 131/95
== END 2018-06-06 14:09 | disposition home health service (06) | DRG 205 ==
LOC: ED 11:09 → SUATTDRO 15:51 → ICU 15:51 → 4N 06-03 18:05
PROVIDERS: ATTEND Emergency Medicine
CPT/HCPCS: 32405; 36415; 36430; 71010; 71020; 71045; 71046; 71260; 71270; 77012; 80048; 80053; 81001; 82550; 82565; 82805; 82948; 83036; 83605; 83735; 83880; 84484; 84520; 85014; 85018; 85025; 85027; 85610; 85730; 86850; 86900; 86901; 86920; 88305; 93005; 93010; 96374; 96375; 96376; 97110; 97162; 97530; 99285; A9270; J0696; J1160; J1956; J2270; J2370; J2405; J3430; J3480; J7040; J7050; P9016; P9017; Q9967; XXXXX